=== PATIENT | male | born 1955 | race Caucasian/White ===

== ENCOUNTER 2019-09-22 06:40 | Inpatient (IN) | payer MEDICARE, BC ==
[2019-09-22] MEDS ORDERED: Sodium Chloride 0.9% 10 ML Syringe FLUSH PRN (07:15)
[2019-09-22] MEDS ORDERED: Sodium Chloride 0.9% 1,000 ML IV STA (07:15)
[2019-09-22] MEDS ORDERED: Ondansetron 4 MG/2 ML SDV IVPUSH ONE (07:16)
--- NOTE | 2019-09-22 07:18 | EDM.PDOC ---
ED HPI GENERAL MEDICAL PROBLEM - General Chief Complaint: Abdominal Pain Stated Complaint: LT ABD PAIN Time Seen by Provider: 09/22/19 07:10 Source of Information: Reports: Patient, Family, RN Notes Reviewed History Limitations: Reports: No Limitations - History of Present Illness INITIAL COMMENTS - FREE TEXT/NARRATIVE: 63-year-old gentleman presents emergency department a complaint of abdominal pain, he states he had abdominal pain for about 24 hours is predominantly in the right upper quadrant. He does have a history of bladder cancer status post resection with urostomy bag. He states his had no complications with that he has had nausea and vomiting had a normal bowel movement 2 days ago no fever no shortness of breath or chest pain Left Upper Abdomen Pain Score (Numeric/FACES): 10 - Related Data Allergies Allergy/AdvReac Type Severity Reaction Status Date / Time Penicillins Allergy Airway Verified 09/22/19 06:59 Tightness Home Meds: Home Meds Multivitamin [Multi Vitamin Daily] 1 tab PO DAILY 02/03/14 [History] Past Medical History HEENT History: Reports: Impaired Vision Cardiovascular History: Reports: Hypertension Oncologic (Cancer) History: Reports: Bladder - Infectious Disease History Infectious Disease History: Reports: Chicken Pox - Past Surgical History GI Surgical History: Reports: Appendectomy Male Surgical History: Reports: Other (See Below) Other Male Surgeries/Procedures: Bladder removal Mar 2018 Musculoskeletal Surgical History: Reports: Knee Replacement Social & Family History - Tobacco Use Smoking Status *Q: Never Smoker Second Hand Smoke Exposure: No - Caffeine Use Caffeine Use: Reports: Coffee - Alcohol Use Days Per Week of Alcohol Use: 7 Number of Drinks Per Day: 1 Total Drinks Per Week: 7 - Recreational Drug Use Recreational Drug Use: No ED ROS GENERAL - Review of Systems Review Of Systems: See Below Constitutional: Reports: No Symptoms HEENT: Reports: No Symptoms Respiratory: Reports: No Symptoms Cardiovascular: Reports: No Symptoms GI/Abdominal: Reports: Abdominal Pain, Flatus, Nausea, Vomiting. Denies: Constipation, Diarrhea : Reports: No Symptoms Neurological: Reports: No Symptoms ED EXAM, GI/ABD - Physical Exam Exam: See Below Exam Limited By: No Limitations General Appearance: Alert, WD/WN, No Apparent Distress Respiratory/Chest: No Respiratory Distress, Lungs Clear, Normal Breath Sounds, No Accessory Muscle Use, Chest Non-Tender Cardiovascular: Regular Rate, Rhythm, No Murmur GI/Abdominal Exam: Normal Bowel Sounds, Soft, No Organomegaly, No Distention, Tender (Left upper quadrant) Course - Vital Signs Last Recorded V/S: Last Vital Signs Temp 97.4 F 09/22/19 07:06 Pulse 69 09/22/19 07:06 Resp 16 09/22/19 07:06 BP 158/93 H 09/22/19 07:06 Pulse Ox 98 09/22/19 07:06 - Orders/Labs/Meds Orders: Active Orders 24 hr Category Date Time Status Peripheral IV Care [RC] . DIRECTED Care 09/22/19 07:16 Active Sodium Chloride 0.9% [Saline Flush] Med 09/22/19 07:15 Active 10 ml FLUSH ASDIRECTED PRN Nasogastric Orogastric Tube Insertion [OM.PC] Routine Oth 09/22/19 09:45 Ordered Peripheral IV Insertion Adult [OM.PC] Urgent Oth 09/22/19 07:15 Ordered Medication Orders Sodium Chloride (Saline Flush) 10 ml FLUSH ASDIRECTED PRN PRN Reason: Keep Vein Open Last Admin: 09/22/19 07:30 Dose: 10 ml Documented by: [id number] Labs: Laboratory Tests 09/22/19 09/22/19 09/22/19 Range/Units 07:15 07:27 07:32 WBC 6.8 (4.5-11.0) K/uL RBC 5.20 (4.30-5.90) M/uL Hgb 16.0 H (12.0-15.0) g/dL Hct 47.8 (40.0-54.0) % MCV 92 (80-98) fL MCH 31 (27-31) pg MCHC 34 (32-36) % Plt Count 140 L (150-400) K/uL Neut % (Auto) 88 H (36-66) % Lymph % (Auto) 8 L (24-44) % Leon % (Auto) 4 (2-6) % Eos % (Auto) 0 L (2-4) % Baso % (Auto) 0 (0-1) % Sodium 142 (140-148) mmol/L Potassium 4.4 (3.6-5.2) mmol/L Chloride 104 (100-108) mmol/L Carbon Dioxide 28 (21-32) mmol/L Anion Gap 9.9 (5.0-14.0) mmol/L BUN 16 (7-18) mg/dL Creatinine 1.1 (0.8-1.3) mg/dL Est Cr Clr Drug Dosing 64.77 mL/min Estimated GFR (MDRD) > 60 (>60) Glucose 187 H (74-106) mg/dL Lactic Acid (0.4-2.0) mmol/L Calcium 9.4 (8.5-10.1) mg/dL Total Bilirubin 0.7 (0.2-1.0) mg/dL AST 28 (15-37) U/L ALT 34 (12-78) U/L Alkaline Phosphatase 80 (46-116) U/L Troponin I < 0.017 (0.000-0.056) ng/mL Total Protein 7.3 (6.4-8.2) g/dL Albumin 3.8 (3.4-5.0) g/dL Globulin 3.5 (2.3-3.5) g/dL Albumin/Globulin Ratio 1.1 L (1.2-2.2) Lipase 77 (73-393) U/L Urine Color Yellow (YELLOW) Urine Appearance Cloudy A (CLEAR) Urine pH 8.5 H (5.0-8.0) Ur Specific [place] 1.020 (1.008-1.030) Urine Protein 30 H (NEGATIVE) mg/dL Urine Glucose (UA) Negative (NEGATIVE) mg/dL Urine Ketones Negative (NEGATIVE) mg/dL Urine Occult Blood Trace-intact H (NEGATIVE) Urine Nitrite Positive H (NEGATIVE) Urine Bilirubin Negative (NEGATIVE) Urine Urobilinogen 0.2 (0.2-1.0) EU/dL Ur Leukocyte Esterase Moderate H (NEGATIVE) Urine RBC 5-10 H (0-5) Urine WBC 10-20 H (0-5) Ur Epithelial Cells Not seen Amorphous Sediment Many Urine Bacteria Many Urine Mucus Not seen 09/22/19 Range/Units 07:32 WBC (4.5-11.0) K/uL RBC (4.30-5.90) M/uL Hgb (12.0-15.0) g/dL Hct (40.0-54.0) % MCV (80-98) fL MCH (27-31) pg MCHC (32-36) % Plt Count (150-400) K/uL Neut % (Auto) (36-66) % Lymph % (Auto) (24-44) % Leon % (Auto) (2-6) % Eos % (Auto) (2-4) % Baso % (Auto) (0-1) % Sodium (140-148) mmol/L Potassium (3.6-5.2) mmol/L Chloride (100-108) mmol/L Carbon Dioxide (21-32) mmol/L Anion Gap (5.0-14.0) mmol/L BUN (7-18) mg/dL Creatinine (0.8-1.3) mg/dL Est Cr Clr Drug Dosing mL/min Estimated GFR (MDRD) (>60) Glucose (74-106) mg/dL Lactic Acid 1.0 (0.4-2.0) mmol/L Calcium (8.5-10.1) mg/dL Total Bilirubin (0.2-1.0) mg/dL AST (15-37) U/L ALT (12-78) U/L Alkaline Phosphatase (46-116) U/L Troponin I (0.000-0.056) ng/mL Total Protein (6.4-8.2) g/dL Albumin (3.4-5.0) g/dL Globulin (2.3-3.5) g/dL Albumin/Globulin Ratio (1.2-2.2) Lipase (73-393) U/L Urine Color (YELLOW) Urine Appearance (CLEAR) Urine pH (5.0-8.0) Ur Specific [place] (1.008-1.030) Urine Protein (NEGATIVE) mg/dL Urine Glucose (UA) (NEGATIVE) mg/dL Urine Ketones (NEGATIVE) mg/dL Urine Occult Blood (NEGATIVE) Urine Nitrite (NEGATIVE) Urine Bilirubin (NEGATIVE) Urine Urobilinogen (0.2-1.0) EU/dL Ur Leukocyte Esterase (NEGATIVE) Urine RBC (0-5) Urine WBC (0-5) Ur Epithelial Cells Amorphous Sediment Urine Bacteria Urine Mucus Meds: Medications Generic Name Dose Route Start Last Admin Trade Name Freq PRN Reason Stop Dose Admin Sodium Chloride 10 ml 09/22/19 07:15 09/22/19 07:30 Saline Flush FLUSH 10 ml ASDIRECTED PRN Administration Keep Vein Open Discontinued Medications Generic Name Dose Route Start Last Admin Trade Name Freq PRN Reason Stop Dose Admin Fentanyl 50 mcg 09/22/19 09:44 09/22/19 09:52 Sublimaze IVPUSH 09/22/19 09:45 50 mcg ONETIME ONE Administration Sodium Chloride 1,000 mls @ 500 mls/hr 09/22/19 07:15 09/22/19 07:28 Normal Saline IV 09/22/19 09:14 500 mls/hr .BOLUS STA Administration Sodium Chloride 78 mls @ 3.5 mls/sec 09/22/19 07:45 09/22/19 08:22 Normal Saline IV 09/22/19 07:46 3.5 mls/sec ASDIRECTED JEREMY Administration Iopamidol 100 ml 09/22/19 07:45 09/22/19 08:23 Isovue-300 (61%) IV 09/22/19 07:46 100 ml . DIRECTED JEREMY Administration Ondansetron HCl 4 mg 09/22/19 07:16 09/22/19 07:27 Zofran IVPUSH 09/22/19 07:17 4 mg ONETIME ONE Administration Sodium Chloride 10 ml 09/22/19 07:45 09/22/19 08:22 Saline Flush FLUSH 09/22/19 07:46 10 ml ONETIME ONE Administration Departure - Departure Time of Disposition: 09:55 Disposition: Admitted As Inpatient 64 Condition: Fair Clinical Impression: Small bowel obstruction Urinary tract infection Qualifiers: Urinary tract infection type: site unspecified Hematuria presence: with hematuria Qualified Code(s): N39.0 - Urinary tract infection, site not specified; R31.9 - Hematuria, unspecified - Discharge Information Referrals: Lalit Torres MD [Primary Care Provider] - Forms: ED Department Discharge Sepsis Event Note (ED) - Evaluation Sepsis Screening Result: No Definite Risk - Focused Exam Vital Signs: Vital Signs Temp Pulse Resp BP Pulse Ox 09/22/19 07:06 97.4 F 69 16 158/93 H 98 - My Orders Last 24 Hours: My Active Orders 09/22/19 07:15 Sodium Chloride 0.9% [Saline Flush] 10 ml FLUSH ASDIRECTED PRN Peripheral IV Insertion Adult [OM.PC] Urgent 09/22/19 07:16 Peripheral IV Care [RC] . DIRECTED 09/22/19 09:45 Nasogastric Orogastric Tube Insertion [OM.PC] Routine - Assessment/Plan Last 24 Hours: My Active Orders 09/22/19 07:15 Sodium Chloride 0.9% [Saline Flush] 10 ml FLUSH ASDIRECTED PRN Peripheral IV Insertion Adult [OM.PC] Urgent 09/22/19 07:16 Peripheral IV Care [RC] . DIRECTED 09/22/19 09:45 Nasogastric Orogastric Tube Insertion [OM.PC] Routine Plan: Assessment Acuity = acute Site and laterality = small bowel obstruction with urinary tract infection Etiology = probable adhesive disease for the small bowel obstruction bacterial cause for urinary tract infection Manifestations = abdominal pain Location of injury = Home Lab values = CBC, CMP, troponin unremarkable urinalysis does reveal positive nitrates 5-10 RBCs consistent with a hematuria and 10-20 WBCs consistent with pyuria CT scan describes a small bowel obstruction low in the pelvis concern for adhesions, also concern for pyelonephritis early on the left side Plan Call discussed case with hospitalist on-call at [phone] he kindly agreed to come and evaluate the patient emergency department for admission, NG tube is placed in ED antibiotics have not been initiated nor blood cultures This note was dictated using Spool voice recognition software please call with any questions on syntax or grammar.
[2019-09-22] MEDS ORDERED: Iopamidol 612 MG/ML 100 ML Bottle IV SCH (07:45)
[2019-09-22] MEDS ORDERED: Sodium Chloride 0.9% 10 ML Syringe FLUSH ONE (07:45)
--- NOTE | 2019-09-22 09:30 | CRLCT ---
INDICATION: Left upper quadrant abdomen pain. Bladder cancer history. TECHNIQUE: CT abdomen and pelvis acquired with 100 cc Isovue IV contrast. COMPARISON: October 15, 2018. FINDINGS: Lower chest: Unremarkable. Liver: Unremarkable. Normal in size and attenuation. No masses. Gallbladder and bile ducts: Unremarkable. No stones or inflammation. No biliary dilatation. Pancreas: Unremarkable. No mass or inflammation. Spleen: Unremarkable. Normal in size. No masses. Adrenal glands: Unremarkable. No nodules. Kidneys: Kidneys are normal in caliber. No hydronephrosis. There are subtle areas of low-attenuation in the superior pole cortex of the left kidney. Pyelonephritis could have this appearance. Kidneys are otherwise unremarkable. GI tract: Right ventral ileal loop diversion is again demonstrated. There is a small bowel obstruction pattern with bowel dilated up to 4 cm. Transition point appears to be in the low pelvis on series 2 around image 120. Remainder of the GI tract is unremarkable. Vasculature: Unremarkable. Mesenteric arteries are patent. Lymph nodes: No lymphadenopathy. Omentum/Peritoneum/Abdominal Wall: Unremarkable. No sign of mass or infiltration. No free air or significant free fluid. Pelvis: Status post cystectomy. No pelvic masses. Bones: Unremarkable for age. IMPRESSION: 1. Small-bowel obstruction with a transition point in the low pelvis. Adhesive disease is likely the cause for the obstruction. 2. Subtle areas of low attenuation in the superior cortex of the left kidney may be normal. However, pyelonephritis could have a similar appearance. Dictated by Marlon العلي MD @ 09/22/2019 9:28:16 AM Please note that all CT scans at this facility use dose modulation, iterative reconstruction, and/or weight-based dosing when appropriate to reduce radiation dose to as low as reasonably achievable. Dictated by: Marlon العلي MD @ 09/22/2019 09:28:31 (Electronically Signed)
[2019-09-22] MEDS ORDERED: fentaNYL 100 MCG/2 ML SDV IVPUSH ONE (09:44)
--- NOTE | 2019-09-22 10:39 | PCM.HP.2 ---
H&P History of Present Illness - General Date of Service: 09/22/19 Admit Problem/Dx: Admission Diagnosis/Problem Admission Diagnosis/Problem Small bowel obstruction due to adhesions Source of Information: Patient, Provider History Limitations: Reports: No Limitations - History of Present Illness Initial Comments - Free Text/Narative: CC: It hurt really bad right here (points to midabdomen) HPI: Yoni presented to the emergency room with acute abdominal pain that started at 11 PM the night before presentation. He describes waves of severe pain that come and go about every 1 minute. Pain is located in the mid abdomen and is crampy to sharp in nature when present. He did try some Pepto-Bismol but thinks he picked it up right away. No obvious triggers to make the pain worse as it comes and goes. Last bowel movement was 2 days ago and was normal. He has had nausea and vomiting. No complaints of fevers or shortness of breath. No sick contacts. No history of bowel obstructions. He has not noticed a change in the urine in his ileal loop drainage. No travel or sick contacts. Work-up in the emergency room was suggestive of a small bowel obstruction. An NG tube has been placed with about 400 mL of brownish drainage so far. Labs are normal. He will be admitted for management of a small bowel obstruction. Left Upper Abdomen Pain Score (Numeric/FACES): 10 - Related Data Allergies/Adverse Reactions: Allergies Allergy/AdvReac Type Severity Reaction Status Date / Time Penicillins Allergy Airway Verified 09/22/19 06:59 Tightness Home Medications: Home Meds Multivitamin [Multi Vitamin Daily] 1 tab PO DAILY 02/03/14 [History] Past Medical History HEENT History: Reports: Impaired Vision Cardiovascular History: Reports: Hypertension Oncologic (Cancer) History: Reports: Bladder - Infectious Disease History Infectious Disease History: Reports: Chicken Pox - Past Surgical History GI Surgical History: Reports: Appendectomy Male Surgical History: Reports: Other (See Below) Other Male Surgeries/Procedures: Bladder removal Mar 2018 Musculoskeletal Surgical History: Reports: Knee Replacement Social & Family History - Family History Oncologic: Reports: Non-Hodgkin's Lymphoma (mom) - Tobacco Use Smoking Status *Q: Never Smoker Second Hand Smoke Exposure: No - Caffeine Use Caffeine Use: Reports: Coffee - Alcohol Use Days Per Week of Alcohol Use: 7 Number of Drinks Per Day: 1 Total Drinks Per Week: 7 - Recreational Drug Use Recreational Drug Use: No H&P Review of Systems - Review of Systems: Review Of Systems: See Below Free Text/Narrative: A complete 12 point review of systems was obtained. Pertinent positives and negatives are noted in the history of present illness. All other systems were reviewed and were negative except as noted. Exam - Exam Exam: See Below - Vital Signs Vital Signs: Last Vital Signs Temp 36.3 C 09/22/19 07:06 Pulse 69 09/22/19 07:06 Resp 16 09/22/19 07:06 BP 158/93 H 09/22/19 07:06 Pulse Ox 98 09/22/19 07:06 Weight: 82.6 kg - Exam Quality Assessment: No: Supplemental Oxygen General: Alert, Oriented, Cooperative. No: Mild Distress HEENT: Conjunctiva Clear. No: Mucosa Moist & [place] (dry), Scleral Icterus Neck: Supple, Trachea Midline Lungs: Clear to Auscultation, Normal Respiratory Effort Cardiovascular: Regular Rate, Regular Rhythm GI/Abdominal Exam: Soft, Non-Tender, Distended (mild), Abnormal Bowel Sounds (hypoactive ) Extremities: No Pedal Edema. No: Increased Warmth Peripheral Pulses: 2+: Dorsalis Pedis (L), Dorsalis Pedis (R) Skin: Warm, Dry Neuro Extensive - Mental Status: Alert, Oriented x3, Nl Response to Commands Neuro Extensive - Motor, Sensory, Reflexes: No: Dysarthria, Abnormal Motor, Tremor Psychiatric: Alert, Normal Affect - Patient Data Lab Results Last 24 hrs: Laboratory Results - last 24 hr 09/22/19 09/22/19 09/22/19 Range/Units 07:15 07:27 07:32 WBC 6.8 (4.5-11.0) K/uL RBC 5.20 (4.30-5.90) M/uL Hgb 16.0 H (12.0-15.0) g/dL Hct 47.8 (40.0-54.0) % MCV 92 (80-98) fL MCH 31 (27-31) pg MCHC 34 (32-36) % Plt Count 140 L (150-400) K/uL Neut % (Auto) 88 H (36-66) % Lymph % (Auto) 8 L (24-44) % [place] % (Auto) 4 (2-6) % Eos % (Auto) 0 L (2-4) % Baso % (Auto) 0 (0-1) % Sodium 142 (140-148) mmol/L Potassium 4.4 (3.6-5.2) mmol/L Chloride 104 (100-108) mmol/L Carbon Dioxide 28 (21-32) mmol/L Anion Gap 9.9 (5.0-14.0) mmol/L BUN 16 (7-18) mg/dL Creatinine 1.1 (0.8-1.3) mg/dL Est Cr Clr Drug Dosing 64.77 mL/min Estimated GFR (MDRD) > 60 (>60) Glucose 187 H (74-106) mg/dL Lactic Acid (0.4-2.0) mmol/L Calcium 9.4 (8.5-10.1) mg/dL Total Bilirubin 0.7 (0.2-1.0) mg/dL AST 28 (15-37) U/L ALT 34 (12-78) U/L Alkaline Phosphatase 80 (46-116) U/L Troponin I < 0.017 (0.000-0.056) ng/mL Total Protein 7.3 (6.4-8.2) g/dL Albumin 3.8 (3.4-5.0) g/dL Globulin 3.5 (2.3-3.5) g/dL Albumin/Globulin Ratio 1.1 L (1.2-2.2) Lipase 77 (73-393) U/L Urine Color Yellow (YELLOW) Urine Appearance Cloudy A (CLEAR) Urine pH 8.5 H (5.0-8.0) Ur Specific [place] 1.020 (1.008-1.030) Urine Protein 30 H (NEGATIVE) mg/dL Urine Glucose (UA) Negative (NEGATIVE) mg/dL Urine Ketones Negative (NEGATIVE) mg/dL Urine Occult Blood Trace-intact H (NEGATIVE) Urine Nitrite Positive H (NEGATIVE) Urine Bilirubin Negative (NEGATIVE) Urine Urobilinogen 0.2 (0.2-1.0) EU/dL Ur Leukocyte Esterase Moderate H (NEGATIVE) Urine RBC 5-10 H (0-5) Urine WBC 10-20 H (0-5) Ur Epithelial Cells Not seen Amorphous Sediment Many Urine Bacteria Many Urine Mucus Not seen 09/22/19 Range/Units 07:32 WBC (4.5-11.0) K/uL RBC (4.30-5.90) M/uL Hgb (12.0-15.0) g/dL Hct (40.0-54.0) % MCV (80-98) fL MCH (27-31) pg MCHC (32-36) % Plt Count (150-400) K/uL Neut % (Auto) (36-66) % Lymph % (Auto) (24-44) % [place] % (Auto) (2-6) % Eos % (Auto) (2-4) % Baso % (Auto) (0-1) % Sodium (140-148) mmol/L Potassium (3.6-5.2) mmol/L Chloride (100-108) mmol/L Carbon Dioxide (21-32) mmol/L Anion Gap (5.0-14.0) mmol/L BUN (7-18) mg/dL Creatinine (0.8-1.3) mg/dL Est Cr Clr Drug Dosing mL/min Estimated GFR (MDRD) (>60) Glucose (74-106) mg/dL Lactic Acid 1.0 (0.4-2.0) mmol/L Calcium (8.5-10.1) mg/dL Total Bilirubin (0.2-1.0) mg/dL AST (15-37) U/L ALT (12-78) U/L Alkaline Phosphatase (46-116) U/L Troponin I (0.000-0.056) ng/mL Total Protein (6.4-8.2) g/dL Albumin (3.4-5.0) g/dL Globulin (2.3-3.5) g/dL Albumin/Globulin Ratio (1.2-2.2) Lipase (73-393) U/L Urine Color (YELLOW) Urine Appearance (CLEAR) Urine pH (5.0-8.0) Ur Specific [place] (1.008-1.030) Urine Protein (NEGATIVE) mg/dL Urine Glucose (UA) (NEGATIVE) mg/dL Urine Ketones (NEGATIVE) mg/dL Urine Occult Blood (NEGATIVE) Urine Nitrite (NEGATIVE) Urine Bilirubin (NEGATIVE) Urine Urobilinogen (0.2-1.0) EU/dL Ur Leukocyte Esterase (NEGATIVE) Urine RBC (0-5) Urine WBC (0-5) Ur Epithelial Cells Amorphous Sediment Urine Bacteria Urine Mucus Result Diagrams: 09/22/19 07:15 09/22/19 07:32 Imaging Impressions Last 24 hrs: CT abd/pelvis-images personally reviewed-small bowel obstruction with transition point in the lower abdomen. Ileal loop present. Sepsis Event Note - Evaluation Sepsis Screening Result: No Definite Risk - Focused Exam Vital Signs: Vital Signs Temp Pulse Resp BP Pulse Ox 09/22/19 07:06 36.3 C 69 16 158/93 H 98 Date Exam was Performed: 09/22/19 Time Exam was Performed: 13:27 *Q Meaningful Use (ADM) - VTE Risk Assess *Q Each Risk Factor Represents 1 Point: Obesity ( BMI > 25 kg/m2) Total Score 1 Point Risk Factors: 1 Each Risk Factor Represents 2 Points: Age 60 - 74 Years, Malignancy (present or previous) Total Score 2 Point Risk Factors: 4 Each Risk Factor Represents 3 Points: None Total Score 3 Point Risk Factors: 0 Each Risk Factor Represents 5 Points: None Total Score 5 Point Risk Factors: 0 Venous Thromboembolism Risk Factor Score *Q: 5 - Problem List (1) Small bowel obstruction SNOMED Code(s): 838613104 ICD Code: K56.609 - UNSP INTESTNL OBST, UNSP TO PARTIAL VERSUS COMPLETE OBST Status: Acute Current Visit: Yes (2) Hx of bladder cancer SNOMED Code(s): 326524179, 405731613 ICD Code: Z85.51 - PERSONAL HISTORY OF MALIGNANT NEOPLASM OF BLADDER Status: Chronic Current Visit: Yes Problem List Initiated/Reviewed/Updated: Yes Orders Last 24hrs: Active Orders 24 hr Category Date Time Status Patient Status Manage Transfer [TRANSFER] Routine ADT 09/22/19 10:29 Ordered Peripheral IV Care [RC] . DIRECTED Care 09/22/19 07:16 Active CULTURE URINE [RM] Routine Lab 09/22/19 10:02 Received Sodium Chloride 0.9% [Saline Flush] Med 09/22/19 07:15 Active 10 ml FLUSH ASDIRECTED PRN Nasogastric Orogastric Tube Insertion [OM.PC] Routine Oth 09/22/19 09:45 Ordered Peripheral IV Insertion Adult [OM.PC] Urgent Oth 09/22/19 07:15 Ordered Resuscitation Status Routine Resus Stat 09/22/19 10:30 Ordered Medication Orders Sodium Chloride (Saline Flush) 10 ml FLUSH ASDIRECTED PRN PRN Reason: Keep Vein Open Last Admin: 09/22/19 07:30 Dose: 10 ml Documented by: [email or web address] Assessment/Plan Comment:: ASSESSMENT AND PLAN - Small bowel obstruction secondary to adhesions-history of cystectomy with bladder cancer. He has an ileal loop. Fairly rapid onset and progression of pain over the past [address] suggested obstruction with transition point in the low abdomen. NG tube is in place. -Continue NG tube suction -IV fluids -Symptomatic management of pain and nausea -Flat and upright in the morning -Surgical consultation if worsening or not getting better History of bladder cancer-status post surgical resection and had been doing well. Maintenance issues - - DVT prophylaxis -mechanical - GI prophylaxis -PPI - Nutrition -nothing by mouth - Tomas catheter -not indicated CODE STATUS -full code Admission justification -this patient will be admitted for inpatient services and is medically appropriate meeting medical necessity for inpatient admission as outlined in my documentation. I reasonably expect the patient will require inpatient services that span a period time over 2 midnights. I reasonably expect this patient to be discharged or transferred within 96 hours [facility]. Disposition -I would anticipate discharge home after the hospital stay Primary care physician -Dr Melissa Penn M.D. - Mortality Measure Prognosis:: Good
[2019-09-22] MEDS ORDERED: Benzocaine/Cetylpyridinium/Menthol Lozenge MUCMEM PRN (11:26)
[2019-09-22] MEDS ORDERED: Ondansetron 4 MG Tab.DIS PO PRN (11:26)
[2019-09-22] MEDS ORDERED: Acetaminophen 325 MG Tab PO PRN (11:26)
[2019-09-22] MEDS ORDERED: LORazepam 2 MG/ML SDV IVPUSH PRN (11:26)
[2019-09-22] MEDS: Ondansetron 4 MG/2 ML SDV IV PRN (11:41)
[2019-09-22] MEDS: HYDROmorphone 0.5 MG/0.5 ML Syringe IVPUSH PRN ×3 (11:41→22:30)
[2019-09-22] MEDS: Sodium Chloride 0.9% 1,000 ML IV SCH ×2 (11:43→22:26)
[2019-09-22] MEDS: Pantoprazole 40 MG Vial IV SCH (14:30)
[2019-09-23] MEDS: Sodium Chloride 0.9% 1,000 ML IV SCH ×2 (08:28→17:40)
[2019-09-23] MEDS: Ondansetron 4 MG/2 ML SDV IV PRN (08:32)
[2019-09-23] MEDS: cefTRIAXone 2 GM in Sodium Chloride 0.9% 50 ML IV SCH (10:56)
[2019-09-23] MEDS: Pantoprazole 40 MG Vial IV SCH (11:54)
--- NOTE | 2019-09-23 12:03 | CR ---
Abdomen 2V AP Flat Upright CLINICAL HISTORY: Follow-up obstruction FINDINGS: No free air is identified. There is an NG tube in the stomach. There are scattered air-filled loops of small bowel with some dilatation. There is gas and feces are the colon. Patient has a right lower quadrant ostomy site IMPRESSION: Small bowel distention in a nonspecific pattern NG tube in place Right lower quadrant ostomy site
--- NOTE | 2019-09-23 13:39 | PCM.PN ---
- General Info Date of Service: 09/23/19 Subjective Update: There were no acute events overnight. Initially there was a fair amount of drainage from the NG tube but only minimal since that time. His abdomen feels less distended and he has no pain this morning. He is passing gas and has had a liquid as well as a soft bowel movement. No fevers. His urine culture is growing a gram-negative shi but identification is still pending. Vital signs have all been stable. Labs are unremarkable. Functional Status: Reports: Pain Controlled - Patient Data Vitals - Most Recent: Last Vital Signs Temp 36.1 C 09/23/19 10:24 Pulse 75 09/23/19 10:24 Resp 18 09/23/19 10:24 BP 137/80 09/23/19 10:24 Pulse Ox 97 09/23/19 10:24 Weight - Most Recent: 82.6 kg I&O - Last 24 Hours: Intake & Output 09/22/19 09/23/19 09/23/19 22:59 06:59 14:59 Intake Total 1002 496 Output Total 200 700 Balance -200 302 496 Lab Results Last 24 Hours: Laboratory Results - last 24 hr 09/23/19 Range/Units 04:30 Sodium 145 (140-148) mmol/L Potassium 4.0 (3.6-5.2) mmol/L Chloride 111 H (100-108) mmol/L Carbon Dioxide 27 (21-32) mmol/L Anion Gap 11.0 (5.0-14.0) mmol/L BUN 15 (7-18) mg/dL Creatinine 1.2 (0.8-1.3) mg/dL Est Cr Clr Drug Dosing 59.38 mL/min Estimated GFR (MDRD) > 60 (>60) Glucose 121 H (74-106) mg/dL Calcium 8.3 L (8.5-10.1) mg/dL Magnesium 2.3 (1.8-2.4) mg/dL José Miguel Results Last 24 Hours: Microbiology 09/22/19 10:02 Urine Culture - Preliminary Urine, Ileal Loop Med Orders - Current: Current Medications Acetaminophen (Tylenol) 650 mg PO Q4H PRN PRN Reason: Pain (Mild 1-3)/fever Benzocaine/Menthol (Cepacol Sore Throat) 1 lozenge MUCMEM Q2H PRN PRN Reason: Sore Throat Last Admin: 09/22/19 14:33 Dose: 1 angelo Documented by: Hydromorphone HCl (Dilaudid) 0.5 mg IVPUSH Q2H PRN PRN Reason: PAIN Last Admin: 09/22/19 22:30 Dose: 0.5 mg Documented by: Sodium Chloride (Normal Saline) 1,000 mls @ 100 mls/hr IV ASDIRECTED [facility]ER[facility]Y Last Admin: 09/23/19 08:28 Dose: 100 mls/hr Documented by: Ceftriaxone Sodium 2 gm/ (Sodium Chloride) 50 mls @ 100 mls/hr IV Q24H [facility] Last Admin: 09/23/19 10:56 Dose: 100 mls/hr Documented by: Lorazepam (Ativan) 0.5 mg IVPUSH Q4H PRN PRN Reason: Nausea/Vomiting Ondansetron HCl (Zofran) 4 mg IV Q6H PRN PRN Reason: Nausea/Vomiting Last Admin: 09/23/19 08:32 Dose: 4 mg Documented by: Ondansetron HCl (Zofran Odt) 4 mg PO Q6H PRN PRN Reason: Nausea able to take PO Pantoprazole Sodium (Protonix Iv) 40 mg IV Q24H [facility] Last Admin: 09/23/19 11:54 Dose: 40 mg Documented by: Sodium Chloride (Saline Flush) 10 ml FLUSH ASDIRECTED PRN PRN Reason: Keep Vein Open Last Admin: 09/22/19 07:30 Dose: 10 ml Documented by: Discontinued Medications Fentanyl (Sublimaze) 50 mcg IVPUSH ONETIME ONE Stop: 09/22/19 09:45 Last Admin: 09/22/19 09:52 Dose: 50 mcg Documented by: Sodium Chloride (Normal Saline) 1,000 mls @ 500 mls/hr IV .BOLUS STA Stop: 09/22/19 09:14 Last Admin: 09/22/19 07:28 Dose: 500 mls/hr Documented by: Sodium Chloride (Normal Saline) 78 mls @ 3.5 mls/sec IV ASDIRECTED [facility]ER[facility] Stop: 09/22/19 07:46 Last Admin: 09/22/19 08:22 Dose: 3.5 mls/sec Documented by: Iopamidol (Isovue-300 (61%)) 100 ml IV . DIRECTED [facility] Stop: 09/22/19 07:46 Last Admin: 09/22/19 08:23 Dose: 100 ml Documented by: Ondansetron HCl (Zofran) 4 mg IVPUSH ONETIME ONE Stop: 09/22/19 07:17 Last Admin: 09/22/19 07:27 Dose: 4 mg Documented by: Sodium Chloride (Saline Flush) 10 ml FLUSH ONETIME ONE Stop: 09/22/19 07:46 Last Admin: 09/22/19 08:22 Dose: 10 ml Documented by: - Exam Quality Assessment: No: Supplemental Oxygen General: Alert, Oriented, Cooperative, No Acute Distress Lungs: Normal Respiratory Effort GI/Abdominal Exam: Normal Bowel Sounds, Soft, No Distention Extremities: No Pedal Edema Skin: Warm, Dry Psy/Mental Status: Alert, Normal Affect Sepsis Event Note - Evaluation Sepsis Screening Result: No Definite Risk - Focused Exam Vital Signs: Vital Signs Temp Pulse Resp BP Pulse Ox 09/23/19 10:24 36.1 C 75 18 137/80 97 09/23/19 06:52 36.8 C 66 18 126/74 96 09/23/19 04:00 36.7 C 66 18 134/85 97 Date Exam was Performed: 09/23/19 Time Exam was Performed: 13:36 - Problem List & Annotations (1) Small bowel obstruction SNOMED Code(s): 175813666 Code(s): K56.609 - UNSP INTESTNL OBST, UNSP TO PARTIAL VERSUS COMPLETE OBST Status: Acute Current Visit: Yes (2) Hx of bladder cancer SNOMED Code(s): 408653150, 631370477 Code(s): Z85.51 - PERSONAL HISTORY OF MALIGNANT NEOPLASM OF BLADDER Status: Chronic Current Visit: Yes - Problem List Review Problem List Initiated/Reviewed/Updated: Yes - My Orders Last 24 Hours: My Active Orders 09/23/19 11:00 cefTRIAXone [Rocephin] 2 gm Sodium Chloride 0.9% [Normal Saline] 50 ml IV Q24H - Plan Plan:: ASSESSMENT AND PLAN - Small bowel obstruction secondary to adhesions-history of cystectomy with bladder cancer. He has an ileal loop. Fairly rapid onset and progression of pain over the past [address] suggested obstruction with transition point in the low abdomen. NG tube is in place. -Continue NG tube suction -Gentle IV fluids -Symptomatic management of pain and nausea -Reassess NG output later in the day, may consider removal if he continues to do well -Surgical consultation if worsening or not getting better Complicated urinary tract infection-no significant symptoms of a urinary tract infection and no fevers or elevated white blood cell count. Urine culture is growing a gram-negative shi but identification is pending. I am going to treat like this is an infection until we see what the final culture shows. -Ceftriaxone -Follow-up urine culture History of bladder cancer-status post surgical resection and had been doing well. Maintenance issues - - DVT prophylaxis -mechanical - GI prophylaxis -PPI - Nutrition -nothing by mouth Disposition -I would anticipate discharge home after the hospital stay Primary care physician -Dr Melissa Penn M.D.
[2019-09-24] MEDS: Sodium Chloride 0.9% 1,000 ML IV SCH (03:44)
[2019-09-24 08:29] VITALS: BP 118/75; PULSE 56
--- NOTE | 2019-09-24 10:58 | PCM.DCSUM1 ---
Discharge Summary - Hospital Course Brief History: Mr. Tomlinson is a 63-year-old gentleman who was admitted through the emergency department with abdominal pain, nausea, and vomiting, secondary to a small bowel obstruction. - Discharge Data Discharge Date: 09/24/19 Discharge Disposition: Home, Self-Care 01 Condition: Fair - Referral to Home Health Primary Care Physician: Lalit Torres MD - Discharge Diagnosis/Problem(s) (1) Small bowel obstruction SNOMED Code(s): 998378346 ICD Code: K56.609 - UNSP INTESTNL OBST, UNSP TO PARTIAL VERSUS COMPLETE OBST Status: Acute Current Visit: Yes (2) Urinary tract infection SNOMED Code(s): 46020146 ICD Code: N39.0 - URINARY TRACT INFECTION, SITE NOT SPECIFIED Status: Acute Current Visit: Yes Qualifiers: Urinary tract infection type: site unspecified Hematuria presence: with hematuria Qualified Code(s): N39.0 - Urinary tract infection, site not specified; R31.9 - Hematuria, unspecified (3) Hx of bladder cancer SNOMED Code(s): 249032125, 654156438 ICD Code: Z85.51 - PERSONAL HISTORY OF MALIGNANT NEOPLASM OF BLADDER Status: Chronic Current Visit: Yes - Patient Summary/Data Hospital Course: Mr. Tomlinson presented to the emergency room with acute abdominal pain that started at 11 PM the night before presentation. He describes waves of severe pain that come and go about every 1 minute. Pain is located in the mid abdomen and is crampy to sharp in nature when present. No obvious triggers to make the pain worse as it comes and goes. Last bowel movement was 2 days ago and was normal. He has had nausea and vomiting. No complaints of fevers or shortness of breath. No sick contacts. No history of bowel obstructions. He has not noticed a change in the urine in his ileal loop drainage. No travel or sick contacts. Work-up in the emergency room was suggestive of a small bowel obstruction. An NG tube has been placed with about 400 mL of brownish drainage so far. Labs are normal. He will be admitted for management of a small bowel obstruction. On admission he was given medication for nausea as well his pain, IV fluids for hydration. Symptoms improved relatively rapidly and by the following morning he was having bowel movements and passing gas. NG tube was removed and he was started on a clear liquid diet, this was advanced to a soft low residue duet diet by the time of discharge. He was also found to have evidence of urinary tract infection and was treated with ceftriaxone IV. Urine culture did grow out E. coli which was pansensitive and he will be discharged home with an additional 4 days of oral antibiotic therapy with cephalexin. He will remain on a soft low residue diet over the next 2 weeks, activity will be as tolerated. Follow-up appointment will be scheduled with Dr. Torres within 1 week. - Patient Instructions Diet: GI Soft/Low Residue/Low Fiber Activity: As Tolerated Other/Special Instructions: FU appt primary care provider w/in 1 week - Discharge Plan *PRESCRIPTION DRUG MONITORING PROGRAM REVIEWED*: Not Applicable *COPY OF PRESCRIPTION DRUG MONITORING REPORT IN PATIENT MANPREET: Not Applicable Prescriptions/Med Rec: cephALEXin [Cephalexin] 500 mg PO Q8H #12 capsule Lactobacillus Rhamnosus GG [Culturelle] 1 cap PO BID #60 cap Home Medications: Home Meds Multivitamin [Multi-Vitamin Daily] 1 tab PO DAILY 02/03/14 [History] Lactobacillus Rhamnosus GG [Culturelle] 1 cap PO BID #60 cap 09/24/19 [Rx] cephALEXin [Cephalexin] 500 mg PO Q8H #12 capsule 09/24/19 [Rx] Referrals: Lalit Torres MD [Primary Care Provider] - 09/30/19 2:20 pm (Please arrive 15 minutes early to register for your appointment.) - Discharge Summary/Plan Comment DC Time >30 min.: No - Patient Data Vitals - Most Recent: Last Vital Signs Temp 96.5 F L 09/24/19 07:00 Pulse 56 L 09/24/19 07:00 Resp 16 09/24/19 07:00 BP 118/75 09/24/19 07:00 Pulse Ox 96 09/24/19 07:00 Weight - Most Recent: 182 lb 1.629 oz I&O - Last 24 hours: Intake & Output 09/23/19 09/24/19 09/24/19 22:59 06:59 14:59 Intake Total 1590 1202 240 Output Total 400 850 Balance 1190 352 240 LUKE Results - Last 24 hrs: Microbiology 09/22/19 10:02 Urine Culture - Final Urine, Ileal Loop Escherichia Coli Med Orders - Current: Current Medications Acetaminophen (Tylenol) 650 mg PO Q4H PRN PRN Reason: Pain (Mild 1-3)/fever Benzocaine/Menthol (Cepacol Sore Throat) 1 lozenge MUCMEM Q2H PRN PRN Reason: Sore Throat Last Admin: 09/22/19 14:33 Dose: 1 angelo Documented by: Hydromorphone HCl (Dilaudid) 0.5 mg IVPUSH Q2H PRN PRN Reason: PAIN Last Admin: 09/22/19 22:30 Dose: 0.5 mg Documented by: Sodium Chloride (Normal Saline) 1,000 mls @ 100 mls/hr IV ASDIRECTED [facility] Last Admin: 09/24/19 03:44 Dose: 100 mls/hr Documented by: Ceftriaxone Sodium 2 gm/ (Sodium Chloride) 50 mls @ 100 mls/hr IV Q24H [facility] Last Admin: 09/23/19 10:56 Dose: 100 mls/hr Documented by: Lorazepam (Ativan) 0.5 mg IVPUSH Q4H PRN PRN Reason: Nausea/Vomiting Ondansetron HCl (Zofran) 4 mg IV Q6H PRN PRN Reason: Nausea/Vomiting Last Admin: 09/23/19 08:32 Dose: 4 mg Documented by: Ondansetron HCl (Zofran Odt) 4 mg PO Q6H PRN PRN Reason: Nausea able to take PO Pantoprazole Sodium (Protonix Iv) 40 mg IV Q24H [facility] Last Admin: 09/23/19 11:54 Dose: 40 mg Documented by: Sodium Chloride (Saline Flush) 10 ml FLUSH ASDIRECTED PRN PRN Reason: Keep Vein Open Last Admin: 09/22/19 07:30 Dose: 10 ml Documented by: Discontinued Medications Fentanyl (Sublimaze) 50 mcg IVPUSH ONETIME ONE Stop: 09/22/19 09:45 Last Admin: 09/22/19 09:52 Dose: 50 mcg Documented by: Sodium Chloride (Normal Saline) 1,000 mls @ 500 mls/hr IV .BOLUS STA Stop: 09/22/19 09:14 Last Admin: 09/22/19 07:28 Dose: 500 mls/hr Documented by: Sodium Chloride (Normal Saline) 78 mls @ 3.5 mls/sec IV ASDIRECTED [facility] Stop: 09/22/19 07:46 Last Admin: 09/22/19 08:22 Dose: 3.5 mls/sec Documented by: Iopamidol (Isovue-300 (61%)) 100 ml IV . DIRECTED [facility] Stop: 09/22/19 07:46 Last Admin: 09/22/19 08:23 Dose: 100 ml Documented by: Ondansetron HCl (Zofran) 4 mg IVPUSH ONETIME ONE Stop: 09/22/19 07:17 Last Admin: 09/22/19 07:27 Dose: 4 mg Documented by: Sodium Chloride (Saline Flush) 10 ml FLUSH ONETIME ONE Stop: 09/22/19 07:46 Last Admin: 09/22/19 08:22 Dose: 10 ml Documented by: - Exam General: Reports: Alert, Oriented, Cooperative, No Acute Distress Lungs: Reports: Clear to Auscultation, Normal Respiratory Effort Cardiovascular: Reports: Regular Rate, Regular Rhythm, No Murmurs GI/Abdominal Exam: Soft, Non-Tender, No Organomegaly, No Distention
[2019-09-24] MEDS: cefTRIAXone 2 GM in Sodium Chloride 0.9% 50 ML IV SCH (11:41)
== END 2019-09-24 13:00 | disposition home or self-care (01) | DRG 389 ==
LOC: JP.ED 06:40 → JP.MS 10:29 → UNDOADMIN 10:29 → JP.MS 11:26 → UNDODISIN 09-24 13:00
PROVIDERS: ADMIT Internal Medicine; ATTEND Internal Medicine
DX: K56.609 Unspecified intestinal obstruction, unspecified as to partial versus complete obstruction (principal); K56.50 Intestinal adhesions [bands], unspecified as to partial versus complete obstruction; H54.7 Unspecified visual loss; N39.0 Urinary tract infection, site not specified; Z90.6 Acquired absence of other parts of urinary tract; Z96.659 Presence of unspecified artificial knee joint; R31.9 Hematuria, unspecified; B96.20 Unspecified Escherichia coli [E. coli] as the cause of diseases classified elsewhere; Z85.51 Personal history of malignant neoplasm of bladder; Z88.0 Allergy status to penicillin; Z90.49 Acquired absence of other specified parts of digestive tract
CPT/HCPCS: 36415; 74177; 80053; 81001; 83605; 83690; 84484; 85025; 87086; 87088; 87186; 96361; 96374; 96375; 99285; J2405; J3010; J7030; J7050; Q9967; 74019; 74019-26; 80048; 83735; 99221-AI; 99232; 99238; 99284; A9270-GY; C9113; J0696; J1170

== ENCOUNTER 2019-10-03 08:27 | Emergency (ER) | payer MEDICARE, BC ==
[2019-10-03 08:50] VITALS: BP 143/93; PULSE 77
--- NOTE | 2019-10-03 09:13 | EDM.PDOC ---
ED HPI GENERAL MEDICAL PROBLEM - General Chief Complaint: Abdominal Pain Stated Complaint: POSSIBLE BOWEL OBSTRUCTION Time Seen by Provider: 10/03/19 08:45 Source of Information: Reports: Patient, Family History Limitations: Reports: No Limitations - History of Present Illness INITIAL COMMENTS - FREE TEXT/NARRATIVE: 64-year-old male was admitted with a small bowel obstruction a week ago, discharged after 2 days without surgical intervention and has developed some symptoms similar to that episode since 1 AM this morning. He has had nausea and vomiting, some left-sided abdominal pain and mild sensation of distention. No fevers or chills. He still is having some bowel movement. Onset: Gradual Duration: Hour(s): (Symptoms for 8 hours) Location: Reports: Abdomen Left Middle Abdomen Pain Score (Numeric/FACES): 5 - Related Data Allergies Allergy/AdvReac Type Severity Reaction Status Date / Time Penicillins Allergy Airway Verified 10/03/19 08:50 Tightness Home Meds: Home Meds Multivitamin [Multi-Vitamin Daily] 1 tab PO DAILY 02/03/14 [History] Past Medical History HEENT History: Reports: Impaired Vision Cardiovascular History: Reports: Hypertension Genitourinary History: Reports: Urostomy Oncologic (Cancer) History: Reports: Bladder - Infectious Disease History Infectious Disease History: Reports: Chicken Pox - Past Surgical History GI Surgical History: Reports: Appendectomy Male Surgical History: Reports: Other (See Below) Other Male Surgeries/Procedures: Bladder removal Mar 2018 Musculoskeletal Surgical History: Reports: Knee Replacement Social & Family History - Family History Family Medical History: Noncontributory Oncologic: Reports: Non-Hodgkin's Lymphoma - Tobacco Use Smoking Status *Q: Never Smoker - Caffeine Use Caffeine Use: Reports: Coffee - Alcohol Use Days Per Week of Alcohol Use: 7 Number of Drinks Per Day: 1 Total Drinks Per Week: 7 - Recreational Drug Use Recreational Drug Use: No ED ROS GENERAL - Review of Systems Review Of Systems: See Below Constitutional: Reports: Malaise. Denies: Fever, Chills HEENT: Reports: No Symptoms Respiratory: Denies: Shortness of Breath Cardiovascular: Denies: Chest Pain GI/Abdominal: Reports: Abdominal Pain, Nausea, Vomiting. Denies: Constipation, Diarrhea : Reports: Other (Has no bladder, has a urostomy bag which is working normal) Skin: Reports: No Symptoms Neurological: Reports: No Symptoms Psychiatric: Reports: No Symptoms ED EXAM, GI/ABD - Physical Exam Exam: See Below Exam Limited By: No Limitations General Appearance: Alert, No Apparent Distress Eyes: Bilateral: Normal Appearance Respiratory/Chest: No Respiratory Distress Cardiovascular: Regular Rate, Rhythm GI/Abdominal Exam: Normal Bowel Sounds, Soft, Tender (Just minimal tenderness across the left abdomen periumbilical area, no guarding) Course - Vital Signs Last Recorded V/S: Last Vital Signs Temp 95.4 F L 10/03/19 08:47 Pulse 77 10/03/19 08:47 Resp 14 10/03/19 08:47 BP 143/93 H 10/03/19 08:47 Pulse Ox 96 10/03/19 08:47 - Re-Assessments/Exams Free Text/Narrative Re-Assessment/Exam: 10/03/19 09:12 Hospital is red alert and cannot take admissions and the patient does not want to be transferred. He admits he is feeling better. He will be discharged with 5 doses of oral Zofran, encouraged to stick with clear liquids for the next 24 to 48 hours and if he worsens he can return. Departure - Departure Time of Disposition: 09:39 Disposition: Home, Self-Care 01 Clinical Impression: Small bowel obstruction Abdominal pain Qualifiers: Abdominal location: upper abdomen, unspecified Qualified Code(s): R10.10 - Upper abdominal pain, unspecified - Discharge Information Instructions: Bowel Obstruction, [id number] Referrals: Lalit Torres MD [Primary Care Provider] - Forms: ED Department Discharge Care Plan Goals: Use Zofran for nausea every 48 hours, stick with liquids for the next 24 hours and then increase diet slowly as tolerated. Return anytime if worsening or concerns. Sepsis Event Note (ED) - Evaluation Sepsis Screening Result: No Definite Risk - Focused Exam Vital Signs: Vital Signs Temp Pulse Resp BP Pulse Ox 10/03/19 08:47 95.4 F L 77 14 143/93 H 96
== END 2019-10-03 09:39 | disposition home or self-care (01) ==
LOC: JP.ED 08:27
DX: K56.609 Unspecified intestinal obstruction, unspecified as to partial versus complete obstruction (principal); I10 Essential (primary) hypertension; Z88.0 Allergy status to penicillin
CPT/HCPCS: 99283

== ENCOUNTER 2021-04-13 08:44 | Inpatient (IN) | payer MEDICARE, BC ==
[2021-04-13] MEDS ORDERED: HYDROmorphone 0.5 MG/0.5 ML Syringe IVPUSH ONE ×3 (09:10→19:18)
[2021-04-13] MEDS ORDERED: Ondansetron 4 MG/2 ML SDV IVPUSH ONE ×2 (09:10→19:18)
[2021-04-13] MEDS ORDERED: Ondansetron 4 MG/2 ML SDV ONE (09:12)
[2021-04-13] MEDS ORDERED: Lactated Ringers 1,000 ML IV SCH (09:15)
[2021-04-13] MEDS ORDERED: Iopamidol 612 MG/ML 100 ML Bottle IV PRN (11:03)
[2021-04-13] MEDS ORDERED: Iopamidol 612 MG/ML 50 ML SDV PO PRN (11:03)
[2021-04-13] MEDS ORDERED: Sodium Chloride 0.9% 100 ML IV SCH (11:15)
[2021-04-13] MEDS ORDERED: Promethazine 12.5 MG in Sodium Chloride 0.9% 50 ML IV ONE (13:25)
[2021-04-13] MEDS: Dextrose 5%-0.45% NaCl 1,000 ML IV SCH ×2 (14:05→21:53)
[2021-04-13] MEDS ORDERED: Naloxone 0.4 MG/ML SDV IVPUSH PRN ×2 (19:44→19:58)
[2021-04-13] MEDS ORDERED: LORazepam 2 MG/ML SDV IV PRN (19:44)
[2021-04-13] MEDS ORDERED: Dextrose 5%-0.45% NaCl 1,000 ML IV SCH (19:45)
[2021-04-13] MEDS ORDERED: Ondansetron 4 MG/2 ML SDV IVPUSH PRN (19:58)
[2021-04-13] MEDS ORDERED: HYDROmorphone/Normal Saline 6 MG/30 ML PCA Vial IV PRN (19:58)
[2021-04-13] MEDS ORDERED: diphenhydrAMINE 50 MG/ML SDV IVPUSH PRN (19:58)
[2021-04-13 20:22] LABS: CORONAVIRUS COVID-19 NAA NEGATIVE (NEGATIVE)
[2021-04-13] MEDS ORDERED: Pantoprazole 40 MG Vial IV SCH (21:00)
[2021-04-14 08:55] VITALS: BP 131/81
[2021-04-14 12:08] VITALS: PULSE 86
== END 2021-04-14 14:54 | disposition home or self-care (01) | DRG 390 ==
LOC: JP.ED 08:44 → JP.MS 19:45
PROVIDERS: ADMIT Internal Medicine; ATTEND Internal Medicine
DX: K56.50 Intestinal adhesions [bands], unspecified as to partial versus complete obstruction (principal); K91.30 Postprocedural intestinal obstruction, unspecified as to partial versus complete; Z85.51 Personal history of malignant neoplasm of bladder; Z20.822 Contact with and (suspected) exposure to COVID-19; Z93.6 Other artificial openings of urinary tract status; Z88.0 Allergy status to penicillin; Z90.49 Acquired absence of other specified parts of digestive tract; Z79.899 Other long term (current) drug therapy; H54.7 Unspecified visual loss; I10 Essential (primary) hypertension; Z86.19 Personal history of other infectious and parasitic diseases; Z96.659 Presence of unspecified artificial knee joint; R73.09 Other abnormal glucose
CPT/HCPCS: 0241U; 36415; 74019; 74177; 80048; 80076; 81001; 82947; 83605; 85025; 87086; 87088; 87186; 96374; 96375; 96376; 99285-25; C9113; J1170; J2405; J2550; J7042; J7120; Q9967

== ENCOUNTER 2022-07-20 16:54 | Observation (INO) | payer MEDICARE, BC ==
[2022-07-20] MEDS ORDERED: Sodium Chloride 0.9% 10 ML Syringe FLUSH PRN (17:56)
[2022-07-20 18:04] LABS: BASOPHILS PERCENT AUTO 0.3 % (0.1-1.3); EOSINOPHILS ABSOLUTE AUTO 0.08 K/uL (0.00-0.40); EOSINOPHILS PERCENT AUTO 1.4 % (0.0-5.4); HEMATOCRIT 48.3 % (38.4-49.7); HEMOGLOBIN 16.7 g/dL (12.9-16.9); IMMATURE GRAN PERCENT AUTO 0.2 % (0.0-0.7); LYMPHOCYTES ABSOLUTE AUTO 0.72 K/uL (0.8-3.3); LYMPHOCYTES PERCENT AUTO 12.3 % (11.4-47.7); MEAN CORPUSCULAR HEMOGLOBIN 32.4 pg (31.6-35.5); MEAN CORPUSCULAR HGB CONC 34.6 g/dL (31.6-35.5); MEAN CORPUSCULAR VOLUME 93.8 fL (81.4-99.0); MONOCYTES ABSOLUTE AUTO 0.33 K/uL (0.20-0.90); MONOCYTES PERCENT AUTO 5.6 % (3.3-12.6); NEUTROPHILS PERCENT AUTO 80.2 % (40.0-78.1); PLATELET COUNT,PLT 145 K/uL (130-375); RED BLOOD CELL COUNT 5.15 M/uL (4.14-5.76); WHITE BLOOD CELL COUNT,WBC 5.9 K/uL (3.2-11.0)
[2022-07-20 18:05] LABS: BASOPHILS ABSOLUTE AUTO 0.02 K/uL (0.00-0.10); IMMATURE GRAN ABSOLUTE AUTO 0.01 K/uL (0.00-0.23)
[2022-07-20] MEDS ORDERED: Sodium Chloride 0.9% 500 ML IV ONE (18:07)
[2022-07-20] MEDS ORDERED: HYDROmorphone 0.5 MG/0.5 ML Syringe IVPUSH ONE ×2 (18:08→20:37)
[2022-07-20 18:16] LABS: A/G RATIO 1.1 (1.2-2.2); ALANINE AMINOTRANSFERASE,ALT 31 U/L (12-78); ALBUMIN 3.6 g/dL (3.4-5.0); ALKALINE PHOSPHATASE 82 U/L (46-116); ASPARTATE AMNIOTRANSFERASE,AST 29 U/L (15-37); BILIRUBIN TOTAL 0.6 mg/dL (0.2-1.0); BLOOD UREA NITROGEN,BUN 18 mg/dL (7-18); C-REACTIVE PROTEIN 1.02 mg/dL (0.0-0.3); CALCIUM 8.7 mg/dL (8.5-10.1); CARBON DIOXIDE,CO2 27 mmol/L (21-32); CHLORIDE,CL 103 mmol/L (100-108); CREATININE 1.2 mg/dL (0.8-1.3); ESTIMATED GFR 66 mL/min (>60); GLUCOSE RANDOM 111 mg/dL (74-106); POTASSIUM,K 4.4 mmol/L (3.6-5.2); SODIUM,NA 138 mmol/L (140-148)
[2022-07-20 18:17] LABS: ANION GAP 12.4 mmol/L (5.0-14.0)
[2022-07-20] MEDS ORDERED: Iopamidol 612 MG/ML 100 ML Bottle IV ONE ×2 (18:18→21:55)
[2022-07-20] MEDS ORDERED: Sodium Chloride 0.9% 10 ML Syringe FLUSH ONE ×2 (18:18→21:55)
[2022-07-20] MEDS ORDERED: Sodium Chloride 0.9% 50 ML IV ONE (18:18)
[2022-07-20] MEDS ORDERED: Sodium Chloride 0.9% 1,000 ML IV SCH (21:45)
[2022-07-20] MEDS ORDERED: Promethazine 6.25 MG in Sodium Chloride 0.9% 50 ML IV PRN (23:30)
[2022-07-20] MEDS ORDERED: Ketorolac 30 MG/ML SDV IVPUSH PRN (23:30)
[2022-07-20] MEDS ORDERED: Morphine 2 MG/ML SYRINGE IVPUSH PRN (23:30)
[2022-07-20] MEDS ORDERED: Ondansetron 4 MG/2 ML SDV IV PRN (23:30)
[2022-07-21] MEDS: Dextrose 5%-0.9% NaCl with KCl 1,000 ML IV SCH ×2 (00:23→07:08)
[2022-07-21 05:54] LABS: HEMATOCRIT 42.3 % (38.4-49.7); HEMOGLOBIN 14.2 g/dL (12.9-16.9); MEAN CORPUSCULAR HGB CONC 33.6 g/dL (31.6-35.5); MEAN CORPUSCULAR VOLUME 95.3 fL (81.4-99.0); RED BLOOD CELL COUNT 4.44 M/uL (4.14-5.76); WHITE BLOOD CELL COUNT,WBC 4.5 K/uL (3.2-11.0)
[2022-07-21 06:12] LABS: ALANINE AMINOTRANSFERASE,ALT 22 U/L (12-78); ALBUMIN 2.6 g/dL (3.4-5.0); ALKALINE PHOSPHATASE 61 U/L (46-116); ASPARTATE AMNIOTRANSFERASE,AST 18 U/L (15-37); BILIRUBIN TOTAL 0.8 mg/dL (0.2-1.0); BLOOD UREA NITROGEN,BUN 14 mg/dL (7-18); CALCIUM 7.8 mg/dL (8.5-10.1); CARBON DIOXIDE,CO2 26 mmol/L (21-32); CHLORIDE,CL 107 mmol/L (100-108); ESTIMATED GFR 82 mL/min (>60); GLUCOSE RANDOM 139 mg/dL (74-106); MAGNESIUM 2.1 mg/dL (1.8-2.4); PHOSPHORUS 3.3 mg/dL (2.5-4.9); POTASSIUM,K 3.6 mmol/L (3.6-5.2); PROTEIN TOTAL,TP 5.2 g/dL (6.4-8.2); SODIUM,NA 139 mmol/L (140-148)
[2022-07-21 06:19] LABS: ANION GAP 9.6 mmol/L (5.0-14.0)
[2022-07-21 12:22] VITALS: BP 136/89; PULSE 60
== END 2022-07-21 14:00 | disposition home or self-care (01) ==
LOC: JP.ED 16:54 → JP.MS 23:22 → INTOOBSV 23:22
PROVIDERS: ADMIT Family Medicine; ATTEND Internal Medicine
DX: K56.600 Partial intestinal obstruction, unspecified as to cause (principal); K43.5 Parastomal hernia without obstruction or gangrene; I10 Essential (primary) hypertension; Z90.49 Acquired absence of other specified parts of digestive tract; Z90.89 Acquired absence of other organs; Z20.822 Contact with and (suspected) exposure to COVID-19; Z85.51 Personal history of malignant neoplasm of bladder; Z79.899 Other long term (current) drug therapy; Z88.0 Allergy status to penicillin
CPT/HCPCS: 36415; 74177; 80053; 83605; 83735; 84100; 85025; 85027; 86140; 96361; 96374; 96376; 99285; G0378; J1170; J1885; J3480; J3490; J7030; J7040; Q9967; U0002; 99238

== ENCOUNTER 2023-01-12 06:09 | Inpatient (IN) | payer MEDICARE, BC ==
[2023-01-12] MEDS ORDERED: Ketorolac 15 MG/ML SDV IVPUSH ONE (06:36)
[2023-01-12] MEDS ORDERED: Iopamidol 612 MG/ML 500 ML Multipack Bottle IV ONE (06:41)
[2023-01-12 06:44] LABS: BASOPHILS ABSOLUTE AUTO 0.02 K/uL (0.00-0.10); BASOPHILS PERCENT AUTO 0.3 % (0.1-1.3); EOSINOPHILS ABSOLUTE AUTO 0.02 K/uL (0.00-0.40); EOSINOPHILS PERCENT AUTO 0.3 % (0.0-5.4); HEMATOCRIT 47.4 % (38.4-49.7); HEMOGLOBIN 16.8 g/dL (12.9-16.9); IMMATURE GRAN PERCENT AUTO 0.3 % (0.0-0.7); LYMPHOCYTES ABSOLUTE AUTO 0.56 K/uL (0.8-3.3); LYMPHOCYTES PERCENT AUTO 8.4 % (11.4-47.7); MEAN CORPUSCULAR HEMOGLOBIN 32.5 pg (31.6-35.5); MEAN CORPUSCULAR HGB CONC 35.4 g/dL (31.6-35.5); MEAN CORPUSCULAR VOLUME 91.7 fL (81.4-99.0); MONOCYTES ABSOLUTE AUTO 0.28 K/uL (0.20-0.90); MONOCYTES PERCENT AUTO 4.2 % (3.3-12.6); NEUTROPHILS ABSOLUTE AUTO 5.75 K/uL (1.0-7.6); NEUTROPHILS PERCENT AUTO 86.5 % (40.0-78.1); PLATELET COUNT,PLT 138 K/uL (130-375); RED BLOOD CELL COUNT 5.17 M/uL (4.14-5.76); WHITE BLOOD CELL COUNT,WBC 6.7 K/uL (3.2-11.0)
[2023-01-12 06:45] LABS: IMMATURE GRAN ABSOLUTE AUTO 0.02 K/uL (0.00-0.23)
[2023-01-12] MEDS ORDERED: Sodium Chloride 0.9% 50 ML IV SCH (06:45)
[2023-01-12] MEDS: Sodium Chloride 0.9% 10 ML Syringe FLUSH ONE ×2 (06:56→07:11)
[2023-01-12] MEDS ORDERED: Ondansetron 4 MG/2 ML SDV IVPUSH ONE (06:58)
[2023-01-12 07:02] LABS: ANION GAP 11.5 mmol/L (5.0-14.0); C-REACTIVE PROTEIN 0.33 mg/dL (0.0-0.3); CALCIUM 9.2 mg/dL (8.5-10.1); CREATININE 1.1 mg/dL (0.8-1.3); EST CRCL DRUG DOSING (CG) 61.32 mL/min; POTASSIUM,K 4.2 mmol/L (3.6-5.2)
[2023-01-12] MEDS ORDERED: Sodium Chloride 0.9% 1,000 ML IV SCH (09:56)
[2023-01-12] MEDS ORDERED: Ondansetron 4 MG/2 ML SDV IV PRN (09:56)
[2023-01-12] MEDS ORDERED: Acetaminophen 325 MG Tab PO PRN (09:56)
[2023-01-12] MEDS ORDERED: Naloxone 0.4 MG/ML SDV IVPUSH PRN (09:56)
[2023-01-12] MEDS ORDERED: HYDROmorphone 0.5 MG/0.5 ML Syringe IVPUSH PRN (09:56)
[2023-01-12] MEDS ORDERED: Sodium Chloride 0.9% 10 ML Syringe FLUSH PRN (09:56)
[2023-01-12] MEDS ORDERED: oxyCODONE 5 MG Tab PO PRN (09:56)
[2023-01-13 04:44] LABS: HEMATOCRIT 43.4 % (38.4-49.7); HEMOGLOBIN 14.9 g/dL (12.9-16.9); MEAN CORPUSCULAR HEMOGLOBIN 32.1 pg (31.6-35.5); MEAN CORPUSCULAR HGB CONC 34.3 g/dL (31.6-35.5); MEAN CORPUSCULAR VOLUME 93.5 fL (81.4-99.0); RED BLOOD CELL COUNT 4.64 M/uL (4.14-5.76); WHITE BLOOD CELL COUNT,WBC 3.6 K/uL (3.2-11.0)
[2023-01-13 05:03] LABS: ANION GAP 9.1 mmol/L (5.0-14.0); CREATININE 1.1 mg/dL (0.8-1.3); EST CRCL DRUG DOSING (CG) 61.32 mL/min; MAGNESIUM 2.1 mg/dL (1.8-2.4)
[2023-01-13] MEDS ORDERED: Pneumococcal 20-Valent Conjug 0.5 ML Syringe IM ONE (10:00)
[2023-01-13] MEDS ORDERED: FLU (Fluad Quad) 2023-24(65UP)/MF59C/PF 60 MCG/0.5 ML Syringe IM ONE (10:00)
[2023-01-13 10:19] VITALS: BP 121/75; PULSE 62
== END 2023-01-13 11:15 | disposition home or self-care (01) | DRG 390 ==
LOC: JP.ED 06:09 → JP.MS 08:08
PROVIDERS: ADMIT Hospitalist; ATTEND Hospitalist
DX: K56.600 Partial intestinal obstruction, unspecified as to cause (principal); K43.5 Parastomal hernia without obstruction or gangrene; I10 Essential (primary) hypertension; Z96.659 Presence of unspecified artificial knee joint; Z90.49 Acquired absence of other specified parts of digestive tract; Z88.0 Allergy status to penicillin; Z79.899 Other long term (current) drug therapy; Z85.51 Personal history of malignant neoplasm of bladder
CPT/HCPCS: 36415; 74177; 80048; 83605; 85025; 86140; J1885; J2405; J3490 ×3; Q9967; 74021; 74021-26; 83735; 85027; 90677; 90694; 96374; 96375; 99222; 99238; 99285-25; A9270-GY; G0008; G0009; J7030